=== PATIENT | male | born 1980 | race Asian ===

== ENCOUNTER 2016-06-01 19:08 | Inpatient (IN) | payer BC ==
[~2016-06-01] VITALS: Ht 180.3 cm; Wt 66.2 kg
[~2016-06-01 19:08] MED LIST: BUSP10TA PO; CITA20TA9 PO; TRAZ100T15 PO
--- NOTE | 2016-06-01 20:03 | ER.PDOC ---
General Chief Complaint: Alcohol/Substance Abuse Stated Complaint: ALCOHOLISM Time seen by MD: 20:02 Source: patient Exam Limitations: intoxication History of Present Illness Initial Comments Was sober for several years and about 10 days ago he started drinking heavily again, today he has a bottle of liquor. Feels nauseous, vomiting and drained Timing/Duration: week Intent: No answer Severity: moderate Associated Symptoms: Depressed Mechanism: Overdose Allergies: Coded Allergies: No Known Allergies (Unverified , 06/07/13) Home Meds Reported Medications Trazodone Hcl 100 Mg [id number] Mg PO HS PRN INSOMNIA 10/29/13 Buspirone Hcl 10 Mg [id number] Mg PO TID 10/29/13 Citalopram Hydrobromide (Celexa)20 Mg [id number] Mg PO DAILY 10/29/13 Past Medical History Medical History: other Surgical History: no surgical history Social History Smoking: non-smoker Alcohol Use: heavy Drug Use: none Review of Systems Constitutional: see HPI EENTM: see HPI Respiratory: see HPI Cardiovascular: see HPI Gastrointestinal: see HPI Genitourinary: see HPI Musculoskeletal: see HPI Skin: see HPI Psychiatric/Neurological: see HPI Physical Exam General Appearance: No acute distress, Alert EENT: No nystagmus, PERRLA, EOM's intact, NML ENT inspection, Pharynx nml, NML gag reflex Neck: Non-Tender, Full Range of Motion, Supple, Normal Inspection Respiratory: chest non-tender, lungs clear, normal breath sounds, no respiratory distress, no accessory muscle use Cardiovascular: Normal Peripheral Pulses, Regular Rate, Rhythm, No Edema, No Gallop, No JVD, No Murmur Gastrointestinal: Tenderness (epigastrium and RUQ) Extremities: Non-Tender, Normal Range of Motion, No Evidence of Trauma, No Edema Neurological/Psychiatric: Alert, Normal Mood/Affect, Calm, bag sewer II-XII NML as Tested, Oriented x 3 Appearance/Memory/Insight: Appropriate Appearance, Appropriate Insight, Neat, No Memory Impairment Behavior/Eye Contact/Speech: Cooperative, Good Eye Contact, Normal Speech, Decreased Rate of Speech Thoughts/Hallucinations: Normal Thought Pattern, No Apparent Hallucination Skin: Normal Color, Warm/Dry Results/Orders Results/Orders Laboratory Tests Test 06/01/16 20:26 White Blood Count 12.510^3/uL (4.5-11.0) Red Blood Count 6.4510^6/uL (4.50-5.90) Hemoglobin 18.1g/dL (13.9-16.3) Hematocrit 52.9% (37.0-53.0) Mean Corpuscular Volume 82.0fL (78-100) Mean Corpuscular Hemoglobin 28.1pg (26-34) Mean Corpuscular Hemoglobin Concent 34.2g/dL (33-37) Red Cell Distribution Width 12.8% (11.5-14.5) Platelet Count 23293^3/uL (150-400) Mean Platelet Volume 9.5fL (7.8-11.0) Neutrophils (%) (Auto) 80.1% (41.0-85.0) Lymphocytes (%) (Auto) 12.0% (24.0-44.0) Monocytes (%) (Auto) 7.5% (5.0-12.0) Neutrophils # (Auto) 10.010^3/uL (1.8-7.7) Lymphocytes # (Auto) 1.510^3/uL (1.0-4.8) Monocytes # (Auto) 0.910^3/uL (0.3-0.8) Absolute Immature Granulocyte (auto 0.0210^3 u/L (0-2) Eosinophils % 0.0% (0.0-5.0) Basophils % 0.2% (0.0-0.2) Basophils # 0.010^3/uL (0.0-0.1) Eosinophil Count 0.010^3/uL (0.0-0.2) Sodium Level 137mmol\L (132-145) Potassium Level 2.5mmol/L (3.6-5.2) Chloride Level 86.0mmol/L (96-109) Carbon Dioxide Level 30.0mmol/L (20.0-32) Anion Gap 23.5 Blood Urea Nitrogen 26mg/dL (7-18) Creatinine 1.85mg/dL (0.59-1.40) Estimat Glomerular Filtration Rate >60 BUN/Creatinine Ratio 14.0 Glucose Level 119mg/dL (70-110) Calculated Osmolality 289.2 Calcium Level 9.3mg/dL (8.4-10.5) Total Bilirubin 0.8mg/dL (0.2-1.0) Aspartate Amino Transf (AST/SGOT) 63U/L (0-35) Alanine Aminotransferase (ALT/SGPT) 48U/L (12-78) Alkaline Phosphatase 66U/L (50-136) Total Creatine Kinase 1301U/L (39-308) Creatine Kinase MB 8.1ng/mL (0.5-3.6) Troponin I < 0.02ng/mL (0.00-0.05) Total Protein 9.1g/dL (6.4-8.2) Albumin 4.7g/dL (3.4-5.0) Globulin 4.4 Salicylates Level < 2.8mg/dL (2.8-20.0) Acetaminophen Level < 1ug/mL (10-30) Serum Alcohol 198mg/dL (3-50) Percent Immature Gran (Cell Imm) 0.20% (0.00-0.50) Administered Medications Medications (Trade) Dose Ordered Sig/Patrice Route PRN Reason Start Time Stop Time Status Last Admin Dose Admin Sodium Chloride (NS 1000ml) 1,000 ml @ 1,200 mls/hr Q50M STAT IV 06/01/16 20:14 06/01/16 21:03 DC 06/01/16 20:40 Departure Time of Disposition: 21:42 Disposition: 09 ADMITTED INPATIENT Impression: Primary Impression: Acute alcoholic intoxication in alcoholism Additional Impressions: Hypokalemia Elevated serum creatinine Condition: Critical Patient Instructions: Alcohol Problems, Alcohol and Drug Addiction, Finding Treatment Referrals: GEE SANCHEZ NP (PCP) PRIMARY CARE PROVIDER MICHELLE VALENZUELA MD Jun 01, 2016 20:03
[2016-06-01] MEDS ORDERED: NS 1000ML 1,000 ML STA (20:14)
[2016-06-01] MEDS ORDERED: NS 1000ML 1,000 ML ONE ×2 (20:24→21:58)
[2016-06-01 20:30] LABS: BASOPHIL % 0.2 % (0.0-0.2); HEMOGLOBIN 18.1 g/dL (13.9-16.3); LYMPHOCYTES # 1.5 10^3/uL (1.0-4.8); MEAN CELL HGB 28.1 pg (26-34); MEAN CELL HGB CONCENTRATION 34.2 g/dL (33-37); MEAN PLATELET VOLUME 9.5 fL (7.8-11.0); MONOCYTES # 0.9 10^3/uL (0.3-0.8); MONOCYTES % 7.5 % (5.0-12.0); NEUTROPHILS % 80.1 % (41.0-85.0); PLATELET COUNT 371 10^3/uL (150-400); RED CELL DISTRIBUTION WIDTH 12.8 % (11.5-14.5); WHITE BLOOD CELL 12.5 10^3/uL (4.5-11.0)
[2016-06-01 21:06] LABS: ALANINE AMINOTRANSFERASE(ML) 48 U/L (12-78); ALKALINE PHOSPHATASE 66 U/L (50-136); ASPARTATE AMINO TRANSFERASE 63 U/L (0-35); CALCIUM 9.3 mg/dL (8.4-10.5); GLUCOSE 119 mg/dL (70-110)
[2016-06-01 21:11] LABS: ACETAMINOPHEN < 1 ug/mL (10-30)
[2016-06-01] MEDS ORDERED: [UNRECOGNIZED DRUG - OTHER] IV ONE (21:30)
[2016-06-01] MEDS ORDERED: FOLIC ACID IV ONE (21:30)
[2016-06-01] MEDS ORDERED: THIAMINE HCL IV ONE (21:30)
[2016-06-01] MEDS ORDERED: INFUVITE ADULT IV ONE (21:30)
[2016-06-01] MEDS ORDERED: MAGNESIUM SULFATE IV ONE (21:30)
[2016-06-01] MEDS ORDERED: KCL 20 MEQ/100 ML IV STA (21:32)
[2016-06-01] MEDS ORDERED: KCL 20MEQ/100ML 100 ML IV ONE (21:39)
[2016-06-01] MEDS ORDERED: MAGNESIUM SULFATE 50 ML IV ONE (21:58)
[2016-06-01] MEDS ORDERED: FOLIC ACID ONE (21:58)
[2016-06-01] MEDS ORDERED: THIAMINE HCL ONE (21:59)
[2016-06-01] MEDS ORDERED: LACTATED RINGERS 1,000 ML IV ONE (22:00)
[2016-06-01] MEDS ORDERED: ATIVAN ONE (22:34)
[2016-06-01] MEDS: ATIVAN PO PRN (22:37)
[2016-06-01 23:09] VITALS: BP 124/80
[2016-06-02] MEDS ORDERED: HNS 500ML 500 ML IV ONE (01:56)
[2016-06-02] MEDS: ATIVAN PO PRN ×3 (02:32→20:47)
[2016-06-02] MEDS: ZOFRAN IV PRN ×2 (02:33→10:02)
[2016-06-02] MEDS ORDERED: LACTATED RINGERS 1,000 ML ONE (02:56)
[2016-06-02 04:00] VITALS: BP 119/72
[2016-06-02 05:40] LABS: APPEARANCE,URINE SLIGHTLY CLOUDY (CLEAR); BILIRUBIN,URINE NEGATIVE (NEGATIVE); UA COLOR YELLOW (YELLOW); UROBILINOGEN,URINE NORMAL (NEGATIVE)
[2016-06-02 05:55] LABS: UR BENZODIAZEPINE QUAL NEGATIVE (NEGATIVE); UR COCAINE QUAL NEGATIVE (NEGATIVE)
[2016-06-02 06:30] LABS: BASOPHIL % 0.2 % (0.0-0.2); EOSINOPHIL % 0.4 % (0.0-5.0); HEMOGLOBIN 13.9 g/dL (13.9-16.3); LYMPHOCYTES # 1.8 10^3/uL (1.0-4.8); LYMPHOCYTES % 16.8 % (24.0-44.0); MEAN CELL HGB 28.5 pg (26-34); MEAN CELL HGB CONCENTRATION 33.1 g/dL (33-37); MEAN CORP VOLUME 86.2 fL (78-100); MEAN PLATELET VOLUME 9.8 fL (7.8-11.0); MONOCYTES # 0.9 10^3/uL (0.3-0.8); MONOCYTES % 8.3 % (5.0-12.0); NEUTROPHIL # 7.9 10^3/uL (1.8-7.7); NEUTROPHILS % 74.1 % (41.0-85.0); RED CELL DISTRIBUTION WIDTH 12.6 % (11.5-14.5); WHITE BLOOD CELL 10.7 10^3/uL (4.5-11.0)
[2016-06-02 07:03] LABS: ALANINE AMINOTRANSFERASE(ML) 38 U/L (12-78); ALKALINE PHOSPHATASE 47 U/L (50-136); ASPARTATE AMINO TRANSFERASE 51 U/L (0-35); CALCIUM 7.7 mg/dL (8.4-10.5); CHOLESTEROL 245 mg/dL (120-240); GLUCOSE 102 mg/dL (70-110); HDL CHOLESTEROL 80 mg/dL (32-96)
[2016-06-02 08:00] VITALS: BP 115/62
[2016-06-02] MEDS ORDERED: KCL 20 MEQ/100 ML IV STA (10:57)
[2016-06-02] MEDS ORDERED: KCL 20MEQ/100ML 100 ML IV ONE (11:09)
[2016-06-02] MEDS ORDERED: NS 1000ML/KCL 20MEQ 1,000 ML IV ONE (11:21)
--- NOTE | 2016-06-02 11:28 | PCM.HP ---
History of Present Illness History of Present Illness 36 yro man with hx of alcohol abuse had been sober for 2 yrs. he moved back to [place] 6 months ago due to family health and stopped his adhd medications with the move. 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 he has not been eating food. he was to rehab 2 yrs ago. he thinks if he had his adhd medications he would be able to control his thoughts and not drink alcohol. Past Surgical History: No pertinent hx Past Social History Smoke: No Alcohol: heavy Drugs: None Lives: Alone Travel Hx EBOLA RISK:Travel to/contact w: No Is pt experiencing any Ebola s: No Review of Systems Constitutional: : Malaise: Weakness Eyes: No: Conjunctivae inflammation, Eyelid inflammation, Other, Pain, Redness , Vision change ENT: No: Ear discharge, Ear pain, Mouth pain, Mouth swelling, Nose congestion, Nose discharge, Nose pain, Other, Throat pain, Throat swelling Respiratory: No: Cough, Dry, Hemoptysis, Other, Pleuritic Pain, SOB with excertion, Shortness of breath, Sputum, Wheezing, Wheezing Cardiovascular: No: Chest Pain, Edema, Lt Headedness, Orthopnea, Other, Palpitations, Paroxysmal Noc. Dyspnea Gastrointestinal: No: Abdominal Pain, Constipation, Diarrhea, Hematochezia, Melena, Nausea, Other, Vomiting Genitourinary: No Dysuria, No Frequency, No Incontinence, No Hematuria, No Retention, No Other Musculoskeletal: No: arm pain, back pain, foot pain, hand pain, leg pain, neck pain, other, shoulder pain Skin: No: Bruising, Jaundice, Lesions, Other, Rash Neurological: : Weakness Allergies: Coded Allergies: No Known Allergies (Unverified , 06/07/13) No Active Prescriptions or Reported Meds VTE VTE Risk Total Score: 0 VTE Risk Score VTE Risk: Score 0-1 = Low Risk (Aggressive mobilization; early ambulation; no VTE prophylaxis required) Score 2: Moderate Risk (Intermittent/Pneumatic Compression Device OR Lovenox/Heparin/Coumadin) Score 3-4: High Risk (Intermittent/Pneumatic Compression Device AND Lovenox/Heparin/Coumadin) Score > or =5: Highest Risk (Intermittent/Pneumatic Compression Device AND Lovenox/Heparin/Coumadin) Antico:Hep/LMWH/Coum/Xarelto: No Mechanical device ordered: No VTE VTE Present on Admission: No Currently receiving anticoagul: No VTE Risk Total Score: 0 Exam Vital Signs Vital Signs Date Time Temp Pulse Resp B/P Pulse Ox O2 Delivery O2 Flow Rate FiO2 06/02/16 08:00 97.8 75 16 115/62 95 Room Air General Appearance: Alert, Oriented X3, Cooperative HEENT: Atraumatic Respiratory: Clear to auscultation, Normal air movement Cardiovascular: Regular rate, Normal S1, Normal S2, No murmurs Abdominal: Soft, No tenderness, No hepatospenomegaly Extremities: No edema Skin: Other (acne face) Neuro: Normal speech Psych/Mental Status: Mood NL Assessment/Plan Assessment/Plan Assessment/Plan alcohol abuse- need social service consult/[facility] - ativan order as prn - supllement thiamine and folic acid hypokalemia - replace with iv and oral KCL rhabdo- continue iv fluids and monitor level and urine outpt malnutrition due to poor dietary intake. start diet today DVT prophylaxis - early ambulation. Problems: (1) Alcohol dependence Status: Acute ICD Code: F10.20 SNOMED: 54359849 (2) Hypokalemia Status: Acute ICD Code: E87.6 SNOMED: 21327046 (3) Acute alcoholic intoxication in alcoholism Status: Acute ICD Code: F10.229 SNOMED: 002330210 (4) Rhabdomyolysis Status: Acute ICD Code: M62.82 SNOMED: 898942382 (5) Protein-calorie malnutrition, moderate Status: Acute ICD Code: E44.0 SNOMED: 581445173 (6) Acute renal failure (ARF) Status: Acute ICD Code: N17.9 SNOMED: 50381109 Patient History: Patient reports no known family medical history. Problem Qualifiers (1) Alcohol dependence: Substance use status: with intoxication (2) Rhabdomyolysis: Rhabdomyolysis type: non-traumatic Qualified Code: M62.82 - Rhabdomyolysis SOFIA DE DIOS MD Jun 02, 2016 11:28
[2016-06-02] MEDS: NS 1000ML/KCL 20MEQ 1,000 ML IV SCH ×2 (11:31→21:45)
[2016-06-02 15:00] VITALS: BP 130/77
[2016-06-02 19:08] VITALS: BP 123/72
[2016-06-02] MEDS: KLOR-CON 10 PO SCH (20:47)
[2016-06-03 00:50] VITALS: BP 131/87
[2016-06-03] MEDS: ATIVAN PO PRN ×2 (02:26→08:07)
[2016-06-03 04:48] VITALS: BP 120/68
[2016-06-03] MEDS ORDERED: THIAMINE HCL ONE (07:56)
[2016-06-03] MEDS ORDERED: FOLIC ACID PO ONE (07:56)
[2016-06-03] MEDS: KLOR-CON 10 PO SCH (08:02)
[2016-06-03] MEDS: NS 1000ML/KCL 20MEQ 1,000 ML IV SCH (08:03)
[2016-06-03 08:37] LABS: CARBON DIOXIDE 31.7 mmol/L (20.0-32); GLUCOSE 104 mg/dL (70-110)
[2016-06-03] MEDS ORDERED: THIAMINE HCL PO SCH (09:00)
[2016-06-03] MEDS ORDERED: FOLIC ACID PO SCH (09:00)
[2016-06-03 09:28] VITALS: BP 130/92
[2016-06-03] MEDS: ZOFRAN IV PRN (11:46)
[2016-06-03 13:51] VITALS: BP 138/87
[2016-06-03 14:13] VITALS: BP 138/87
--- NOTE | 2016-06-03 23:26 | DSH ---
DATE OF DISCHARGE: 06/03/2016 ADMITTING DIAGNOSES: Acute alcohol intoxication with rhabdomyolysis and acute renal injury/acute renal insufficiency with adult attention deficit disorder. DISCHARGE DIAGNOSES: Acute alcoholism resolved with rhabdomyolysis resolving and dehydration resolving with adult attention deficit disorder and acute renal insufficiency resolved. 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 He started to drink heavily to help him with his ADD and to cope with things and he came in with acute rhabdomyolysis with elevated CK enzymes and elevated creatinine. He was given IV fluids and he has turned around nicely. His creatinine is back down to normal. His CK enzyme is in the 1300s, but he is not complaining of any myalgias at this point. His urine is clear. His vital signs are stable. He feels good enough to go home today. I am going to send him home. I have asked him to stay hydrated at home, to stay away from alcohol and I have asked him to follow up with the PCP within this week to start him back on his Vyvanse so he can concentrate better. I have given him my number to see if in case he cannot find a follow up with any physician in town he can follow up with me in my clinic. Regular diet and regular activity level. Emeli Catsaneda MD DR: HAILEE/milla JOB# [id number]
== END 2016-06-03 14:10 | disposition home or self-care (01) | DRG 896 ==
LOC: ER 19:08 → MS 21:43
PROVIDERS: ADMIT Internal Medicine; ATTEND Pediatrics
DX: F10.229 Alcohol dependence with intoxication, unspecified (principal); N17.0 Acute kidney failure with tubular necrosis; E44.0 Moderate protein-calorie malnutrition; M62.82 Rhabdomyolysis; E87.6 Hypokalemia; F90.9 Attention-deficit hyperactivity disorder, unspecified type; E86.0 Dehydration; Z79.899 Other long term (current) drug therapy
CPT/HCPCS: 36415; 80048; 80053; 80061; 81000; 82550; 83036; 83880; 84484; 85025; 85610; 87086; 93005; 96361; 96365; 96374; 99285; G0479; G0481; G0482; G0483; J2405; J3475; J3480; J7030; J7120; G6040; J3411